=== PATIENT | male | born 1960 | race Caucasian/White ===

== ENCOUNTER 2018-04-11 08:35 | Outpatient (CLI) | payer BC ==
--- NOTE | 2018-04-11 10:04 | RAD ---
PA AND LATERAL CHEST: HISTORY: A 57-year-old male with a history of dyspnea. COMPARISON: 07/30/2015 FINDINGS: Mild stable increased linear and interstitial markings bilaterally, particularly in the infrahilar re gions. No confluent pneumonia, overt edema, or pleural effusion. IMPRESSION: No acute intrathoracic disease. Stable from prior study. POS: [facility]
== END 2018-04-11 08:36 | disposition home or self-care (01) ==
LOC: RAD 08:35
PROVIDERS: ATTEND Internal Medicine Critical Care Medicine
DX: R06.00 Dyspnea, unspecified (principal)
CPT/HCPCS: 71046

== ENCOUNTER 2018-10-13 09:30 | Observation (INO) | payer BC ==
[2018-10-13 09:56] LABS: #Basophils 0.1 thou/uL (0.0-0.2); #Eosinphils 0.5 thou/uL (0.0-0.7); #Lymphocytes 1.9 thou/uL (1.20-3.40); #Monocytes 0.7 thou/uL (0.11-0.59); #Neutrophils 5.3 thou/uL (1.40-6.50); %Basophils 0.7 % (0.0-1.0); %Eosinophils 6.2 % (0.0-10.0); %Lymphocytes 22.6 % (21.0-51.0); %Monocytes 7.7 % (0.0-10.0); %Neutrophils 62.9 % (42.0-75.0); Hemoglobin 15.8 g/dL (14.0-18.0); Mean Corpuscular Hemoglobin 32.7 pg (27.0-31.0); Mean Platelet Volume 6.9 fL (7.4-10.4); Platelet Count 305 thou/uL (130-400); RBC Distribution Width 12.2 % (11.5-14.5); Red Blood Cell (RBC) Count 4.84 mill/uL (4.70-6.10); White Blood Cell (WBC) Count 8.4 thou/uL (4.8-10.8)
--- NOTE | 2018-10-13 10:04 | RAD ---
XR Chest 1 View Portable HISTORY: Chest pain, shortness of breath COMPARISON: 11/01/2011 FINDINGS: The heart size is normal. The lungs are well expanded without focal areas of consolidation, pneumothorax or pleural effusions. IMPRESSION: No radiographic evidence of acute cardiopulmonary process.
[2018-10-13] MEDS ORDERED: Nitroglycerin 2% Ointment 1 INCH/1 GM Packet ONE (10:07)
[2018-10-13] MEDS ORDERED: Aspirin Chewable 81 MG TAB ONE (10:07)
[2018-10-13 10:21] LABS: Digoxin Less than 0.15 ng/mL (0.8-2.0)
[2018-10-13 10:25] LABS: ALT (SGPT) 45 U/L (8-55); AST (SGOT) 29 U/L (5-34); Albumin 4.8 g/dL (3.5-5.0); Alkaline Phosphatase 83 U/L (40-150); Anion Gap 13 mmol/L (10-20); BUN (Urea Nitrogen) 16 mg/dL (8.4-25.7); Bilirubin, Total 0.5 mg/dL (0.2-1.2); CK (CPK) 195 U/L (30-200); Calc. Creatinine Clearance 0 mL/min (70-130); Calcium 10.6 mg/dL (7.8-10.44); Carbon Dioxide 32 mmol/L (22-29); Chloride 103 mmol/L (98-107); Estimated GFR-MDRD 81; Globulin 2.4 g/dL (2.4-3.5); Glucose 113 mg/dL (70-105); Lipase 33 U/L (8-78); Potassium 5.4 mmol/L (3.5-5.1); Protein, Total 7.2 g/dL (6.0-8.3); Sodium 143 mmol/L (136-145)
[2018-10-13 12:42] VITALS: BMI 40.6
[2018-10-13 13:06] LABS: Troponin I Less than 0.010 ng/mL (< 0.028)
[2018-10-13] MEDS ORDERED: Bisacodyl 5 MG TAB PO PRN (13:36)
[2018-10-13] MEDS ORDERED: Acetaminophen 650 MG Suppository PR PRN (13:36)
[2018-10-13] MEDS ORDERED: Lidocaine 2% Viscous Solution 10 ML, Aluminum & Magnesium Hydroxide 30 ML SSW SCH (13:45)
[2018-10-13] MEDS ORDERED: clonazePAM 0.5 MG TAB PO PRN (15:58)
[2018-10-13 16:25] LABS: Troponin I Less than 0.010 ng/mL (< 0.028)
--- NOTE | 2018-10-13 16:26 | HP ---
PRIMARY CARE PROVIDER: Luis A Roldan MD CHIEF COMPLAINT: Chest pain. HISTORY OF PRESENT ILLNESS: Mr. Woodard is a pleasant 58-year-old gentleman, who was seen at [facility] on October 13, 2018. He reports that he had a normal stress test approximately a year ago. He also reports that he has irritable bowel syndrome and usually has abdominal discomfort. Last night, he started having abdominal pain. He was awake all night. He describes it as an aching sensation, accompanied by nausea, itching, and diarrhea. He started having chest discomfort this morning. He describes it as left-sided, radiating along the left side of his chest, but not to arm, shoulder, or jaw. It was accompanied by shortness of breath and diaphoresis. He also reports feeling lightheaded. The chest pain lasted until he came to the emergency room and received nitro paste. REVIEW OF SYSTEMS: All other systems reviewed and found to be negative. PAST MEDICAL HISTORY: Dyslipidemia and asthma. PAST SURGICAL HISTORY: None. PSYCHIATRIC HISTORY: Depression and bipolar disorder. SOCIAL HISTORY: He drinks 2 drinks a day. He denies recreational drug use or tobacco use. FAMILY HISTORY: His father from myocardial infarction at age 76. He reports that his father had multiple heart attacks prior to his . ALLERGIES: NO KNOWN DRUG ALLERGIES. CURRENT MEDICATIONS: 1. Nuvigil 250 mg daily. 2. Clonazepam 0.5 mg at bedtime as needed. 3. Lamictal 300 mg at bedtime. 4. Latuda 120 mg daily. 5. Meloxicam 15 mg daily. 6. Pristiq 50 mg daily. 7. Propranolol 80 mg at bedtime. 8. Simvastatin 40 mg daily. 9. Singulair 10 mg at bedtime. PHYSICAL EXAMINATION: GENERAL: On examination, Mr. Woodard is awake and alert, not in acute distress. He is morbidly obese, with a BMI of 40.7. VITAL SIGNS: Blood pressure is 124/63, pulse 73, respiratory rate 16, and oxygen saturation 94% on room air. He is afebrile. EYES: No scleral icterus. No conjunctival pallor. ENT: Moist mucosal membranes. No oropharyngeal erythema or exudates. NECK: Supple, nontender. Trachea is midline. RESPIRATORY: Accessory muscles of breathing are not active. Chest wall movements are symmetric bilaterally. Lungs are clear to auscultation without wheeze, rhonchi, or crepitations. CARDIOVASCULAR: S1 and S2 are heard, regular. Peripheral pulses are palpable. No carotid bruit. No pericardial rub. ABDOMEN: Soft, nontender. Bowel sounds heard. NEUROLOGIC: Cranial nerves II through XII intact. Deep tendon reflexes 2+. MUSCULOSKELETAL: Power is 5/5 in all 4 extremities. SKIN: No rashes or subcutaneous nodules. LYMPHATIC: No cervical lymphadenopathy. PSYCHIATRIC: Normal mood. Normal affect. The patient is oriented to person, place, and time. LABS AND INVESTIGATIONS: Mr. Woodard's labs and investigations were reviewed. I reviewed his electrocardiogram, which shows normal sinus rhythm, no ST changes to suggest an acute coronary syndrome. I also reviewed his chest x-ray, which does not show any pulmonary infiltrates. He has an unremarkable CBC, mildly elevated potassium of 5.4, elevated carbon dioxide of 32, elevated calcium of 10.6, otherwise unremarkable comprehensive metabolic profile, normal BNP, and troponin I that is negative x2. ASSESSMENT AND PLAN: Mr. Woodard is a pleasant 58-year-old gentleman, who was seen at [facility] on October 13, 2018. Problem list includes: 1. Chest pain: Given his risk factors, the patient will be admitted to the hospital for telemetry monitoring and stress test. Further management depending on outcome of the test. 2. Hyperkalemia: Mild, likely asymptomatic. We will administer Kayexalate and recheck potassium level in the morning. 3. Depression: Mild, stable. 4. Dyslipidemia: Continue simvastatin. 5. Asthma: Stable. Many thanks for allowing me to participate in your patient's care. Please feel free to contact me with any questions or concerns. LEVEL OF RISK: High. LEVEL OF COMPLEXITY: High. Job ID: [id number]
[2018-10-13] MEDS: Acetaminophen 325 MG TAB PO PRN (17:53)
[2018-10-13] MEDS ORDERED: Ondansetron PF 4 MG/2 ML Vial IVP PRN (20:20)
[2018-10-13] MEDS ORDERED: Propranolol HCl LA 80 MG CAP PO SCH (21:00)
[2018-10-13] MEDS ORDERED: Atorvastatin Calcium 20 MG TAB PO SCH (21:00)
[2018-10-13] MEDS ORDERED: Montelukast Sodium 10 mg Tablet PO SCH (21:00)
[2018-10-13] MEDS ORDERED: lamoTRIgine 100 MG TAB PO SCH (21:00)
[2018-10-14] MEDS: Acetaminophen 325 MG TAB PO PRN ×2 (02:08→08:14)
[2018-10-14 05:18] LABS: Anion Gap 9 mmol/L (10-20); BUN (Urea Nitrogen) 12 mg/dL (8.4-25.7); Calc. Creatinine Clearance 174 mL/min (70-130); Calcium 9.1 mg/dL (7.8-10.44); Carbon Dioxide 31 mmol/L (22-29); Chloride 104 mmol/L (98-107); Estimated GFR-MDRD 86; Glucose 126 mg/dL (70-105); Potassium 4.2 mmol/L (3.5-5.1); Sodium 140 mmol/L (136-145)
[2018-10-14 05:21] LABS: #Eosinphils 0.5 thou/uL (0.0-0.7); #Lymphocytes 2.2 thou/uL (1.20-3.40); #Monocytes 0.9 thou/uL (0.11-0.59); #Neutrophils 6.3 thou/uL (1.40-6.50); %Basophils 0.2 % (0.0-1.0); %Eosinophils 5.1 % (0.0-10.0); %Lymphocytes 22.4 % (21.0-51.0); %Monocytes 9.2 % (0.0-10.0); Hemoglobin 14.5 g/dL (14.0-18.0); Mean Corpuscular HGB CONC 34.3 g/dL (32.0-36.0); Mean Corpuscular Hemoglobin 32.9 pg (27.0-31.0); Mean Platelet Volume 6.9 fL (7.4-10.4); Platelet Count 257 thou/uL (130-400); RBC Distribution Width 12.4 % (11.5-14.5); Red Blood Cell (RBC) Count 4.39 mill/uL (4.70-6.10)
[2018-10-14] MEDS ORDERED: LURASIDONE HCL 120 MG PO SCH (09:00)
[2018-10-14] MEDS ORDERED: ARMODAFINIL 250 MG PO SCH (09:00)
[2018-10-14] MEDS ORDERED: Meloxicam 15 MG TAB PO SCH (09:00)
[2018-10-14] MEDS ORDERED: Venlafaxine HCl XR 75 MG CAP PO SCH (09:00)
[2018-10-14] MEDS ORDERED: Regadenoson 0.4 MG/5 ML SYRINGE ONE (10:14)
--- NOTE | 2018-10-14 12:09 | NM ---
Nuclear medicine Cardiac myocardial perfusion SPECT Ejection fraction study Wall motion cine: DATE: 10/14/2018 HISTORY: 58-year-old male with dyslipidemia and family history of coronary artery disease presents with chest pain. TECHNIQUE: Number of days:1 Rest study: Not performed, stress only study Pharmacologic stress: Lexiscan dose:0.4 mg Stress study: Technetium 99m-sestamibi (Cardiolite) dose:32 mCi FINDINGS: Cardiac (myocardial perfusion) SPECT There are no significant myocardial perfusion defects. Ejection fraction study Left ventricular EF = 67% Wall motion cine Normal IMPRESSION: No evidence of ischemia.
[2018-10-14 12:14] VITALS: BP 177/83; TEMP 97.6
--- NOTE | 2018-10-15 02:45 | DIS ---
DATE OF ADMISSION: 10/13/2018 DATE OF DISCHARGE: 10/14/2018 PRIMARY CARE PROVIDER: Luis A Roldan MD DISCHARGE DIAGNOSES: 1. Chest pain. 2. Most likely musculoskeletal etiology for chest pain. CONDITION OF PATIENT ON THE DAY OF DISCHARGE: Stable. I assessed Mr. Woodard on the day of discharge. He denies any chest pain or shortness of breath. Vital signs are stable. S1 and S2 are heard, regular. Lungs are clear to auscultation bilaterally. DISCHARGE MEDICATIONS: No change was made to his pre-admission home medications as dictated on my history and physical note dated October 13, 2018. HOSPITAL COURSE: Mr. Woodard is a pleasant 58-year-old gentleman, who was admitted to [facility] on October 13, 2018, for chest pain. He was monitored on telemetry. He had negative troponins. He underwent nuclear stress test, which did not show any significant myocardial perfusion defects. Left ventricular ejection fraction was 67%. He also had a normal D-dimer of less than 0.27. His chest pain resolved. He is being discharged home in a stable condition and advised to follow up with his primary care provider. He also had hyperkalemia on the day of admission with a potassium of 5.4. It resolved with Kayexalate. He was also hypercalcemic with a calcium of 10.6 at the time of admission. It normalized to 9.1 on the day of discharge. On the day of discharge, his creatinine is 0.91, sodium 140, potassium 4.2, white count 10,000, hemoglobin 14.5, and platelet count 257,000. Many thanks for allowing me to participate in your patient's care. Please feel free to contact me with any questions or concerns. DISCHARGE DESTINATION: Home. Job ID: [id number]
== END 2018-10-14 15:22 | disposition home or self-care (01) ==
LOC: ERS 09:30 → 2SW 12:39
PROVIDERS: ADMIT Internal Medicine; ATTEND Internal Medicine
DX: R07.89 Other chest pain (principal); R10.9 Unspecified abdominal pain; R06.02 Shortness of breath; R61 Generalized hyperhidrosis; E78.5 Hyperlipidemia, unspecified; E87.5 Hyperkalemia; J45.909 Unspecified asthma, uncomplicated; F32.9 Major depressive disorder, single episode, unspecified; E66.01 Morbid (severe) obesity due to excess calories; Z68.41 Body mass index [BMI] 40.0-44.9, adult; Z79.899 Other long term (current) drug therapy
CPT/HCPCS: 36415; 71045; 78452; 80048; 80053; 80162; 82550; 83690; 83880; 84484; 85025; 85379; 90471; 90732; 93005; 93017; 94760; 96374; A9500; G0009; G0378; J2405; J2785